=== PATIENT | female | born 1985 | race Caucasian/White ===

== ENCOUNTER 2022-11-23 12:19 | Emergency (ER) | payer OTHER, SELFPAY ==
[2022-11-23 12:29] VITALS: BP 122/78; PULSE 99; RESP 16; TEMP 36.3; O2SAT 98
--- NOTE | 2022-11-23 12:55 | ED.GENADULT ---
HPI - General Adult General Chief complaint: Urogenital-Female Stated complaint: Vaginal Issure Source: patient Mode of arrival: ambulatory Limitations: no limitations History of Present Illness HPI narrative: Patient presents for evaluation of vaginal irritation for the last few weeks. She indicates she has a new sex partner was well in doubt. She states during recent sexual activity she believes she may have experienced some vaginal tearing. She feels excoriated in the region now. She reports burning sensation wound urine comes in contact with the affected area. She is not sure whether she has any other urinary symptoms per se. She reports itching but is not sure whether she has experienced any vaginal discharge. She has a NuvaRing which was inserted about two weeks ago. She reports vaginal spotting. Denies any history of STI. Her sex partner is asymptomatic. They do not use condoms. She does not use any medicated or chemical douche products but she has been washing inside of her vaginal vault with water. Related Data Home Medications Medication Instructions Recorded Confirmed buspirone 5 mg tablet 5 mg PO DAILY 11/23/22 11/23/22 Allergies Allergy/AdvReac Type Severity Reaction Status Date / Time diphenhydramine AdvReac CRAZY Verified 11/23/22 12:38 [From Benadryl] BE AdvReac CRAZY Uncoded 11/23/22 12:38 Review of Systems Review of Systems: CONSTITUTIONAL: Denies fever, chills, or sweats. EYES: Denies visual changes, redness, or discharge. ENT: Denies rhinorrhea, congestion, sore throat, or otalgia. CARDIOVASCULAR: Denies chest pain, palpitations, or edema. RESPIRATORY: Denies cough or dyspnea. GASTROINTESTINAL: Denies abdominal pain, nausea, vomiting, or diarrhea. GENITOURINARY: Reports vaginal irritation, itching, burning and spotting. SKIN: Denies rash or itching. MUSCULOSKELETAL: Denies back pain, joint pain, or myalgia. NEUROLOGIC: Denies headache, numbness, dizziness, or weakness. PSYCHIATRIC: Denies anxiety or depression. [facility] Past Medical History Medical History No pertinent past medical history Surgical History Surgical History History of cholecystectomy History of tubal ligation Family History Family History Mother Family history non-contributory Social History Social History Smoking status: Never smoker Substance use: never Gender identity (if verbalized by the patient): Female Sexual Orientation (if Verbalized by the Patient): Straight or Heterosexual Spiritual care concerns: No Exam Narrative: GENERAL: Well-appearing, well-nourished, and in no acute distress. HEAD: Normocephalic, atraumatic. EYES: PERRLA and EOMI. ENT: Nares clear, no rhinorrhea or epistaxis. Mucous membranes moist. Oropharynx without tonsillar hypertrophy exudate or other lesions. Bilateral TMs pearly philip nonbulging NECK: Supple. No adenopathy or masses. No carotid bruits or JVD CHEST: Clear to auscultation. No respiratory distress. No wheezes rales or rhonchi HEART: Regular rate and rhythm. No murmur heard. Normal peripheral pulses. ABDOMEN: Soft, nontender, nondistended, normal active bowel sounds. GENITALS: There is erythema noted to the inner labia with several areas of excoriation which are all 5mm or less. No tenderness on bimanual exam. There is thick yellow drainage in vaginal vault. EXTREMITIES: Normal range of motion. No edema. SKIN: Warm, dry, no rash. NEURO: No focal deficits. Alert and oriented x3. PSYCH: Normal mood and affect. Course Course Emergency Course: This is a 37-year-old female who presented for evaluation of vaginal irritation. On exam she has erythema with several areas of excoriation to vaginal mucosa. Differential inc
== END 2022-11-23 13:27 | disposition home or self-care (01) ==
PROVIDERS: Emergency Provider Nurse Practitioner; PCP Physician Assistant
DX: N76.0 Acute vaginitis (principal)
CPT/HCPCS: 81003; 87086; 87255; 87491; 87591; 87661; 99214; G0463

== ENCOUNTER 2024-08-08 15:04 | Emergency (ER) | payer OTHER, SELFPAY ==
[2024-08-08 15:11] VITALS: BP 113/60; PULSE 80; RESP 16; TEMP 37.1; O2SAT 98
--- NOTE | 2024-08-08 15:22 | ED.FEMALEGU ---
HPI - Female Genitourinary General Chief complaint: Urogenital-Female Stated complaint: Urinary Problem Time Seen by Provider: 08/08/24 15:22 Source: patient Mode of arrival: ambulatory Limitations: no limitations History of Present Illness HPI Narrative: 39 yo F presents with c/o urinary frequency, urgency, incontinence for 3 days. Concerned she has bladder infection. No back or ABD pain. Denies N/V, chills, fever. Denies . No concern for STI. Denies vaginal itching, discharge. All systems reviewed and negative except as noted above. Related Data Home Medications Medication Instructions Recorded Confirmed aspirin 81 mg tablet,delayed 81 mg PO DAILY 08/08/24 08/08/24 release Allergies Allergy/AdvReac Type Severity Reaction Status Date / Time diphenhydramine AdvReac CRAZY Verified 11/23/22 12:38 [From Pumal] BE AdvReac CRAZY Uncoded 11/23/22 12:38 Review of Systems Review of Systems: CONSTITUTIONAL: Denies fever, chills, or sweats. EYES: Denies visual changes, redness, or discharge. ENT: Denies rhinorrhea, congestion, sore throat, or otalgia. CARDIOVASCULAR: Denies chest pain, palpitations, or edema. RESPIRATORY: Denies cough or dyspnea. GASTROINTESTINAL: Denies abdominal pain, nausea, vomiting, or diarrhea. GENITOURINARY: Denies dysuria or hematuria. Reports urinary frequency, urgency, incontinence. SKIN: Denies rash or itching. MUSCULOSKELETAL: Denies back pain, joint pain, or myalgia. NEUROLOGIC: Denies headache, numbness, or weakness. PSYCHIATRIC: Denies anxiety or depression. All other systems reviewed are negative, except as documented in HPI. [facility] Past Medical History Medical History No pertinent past medical history Surgical History Surgical History History of cholecystectomy History of tubal ligation Family History Family History Mother Family history non-contributory Social History Social History Smoking status: Never smoker Substance use: never Gender identity (if verbalized by the patient): Female Sexual Orientation (if Verbalized by the Patient): Straight or Heterosexual Spiritual care concerns: No Comments At time of signature, agree with nursing past medical, surgical, social and family history. There is no relevant family history pertinent to the presenting complaint. Exam Narrative: GENERAL: This is a well-nourished, well-developed patient, in no apparent distress. HEAD: normocephalic, atraumatic. EYES: PERRL. Sclera clear/white. Vision is grossly intact. EARS: External ears normal NOSE: External nose normal NECK: Neck supple, non-tender without lymphadenopathy, masses or thyromegaly. CARDIOVASCULAR: Regular rate and rhythm without murmurs, gallops, or rubs. RESPIRATORY: Clear to auscultation. Breath sounds equal bilaterally. No wheezes, rales, or rhonchi. SKIN: warm, Dry, intact with no suspicious lesions or rash, good texture and turgor. NEURO: awake, alert, and oriented to person, place and time. There were no obvious focal neurologic abnormalities. EXTREMITIES: No joint tenderness, effusion, or edema noted. Course Course Level of Care: Express Care Visit Vital Signs Vital signs: Vital Signs Temperature 37.1 C 08/08/24 15:11 Pulse Rate 80 08/08/24 15:11 Respiratory Rate 16 08/08/24 15:11 Blood Pressure 113/60 08/08/24 15:11 Pulse Oximetry 98 08/08/24 15:11 Oxygen Delivery Room Air 08/08/24 15:11 Temperature 37.1 C 08/08/24 15:11 Pulse Rate 80 08/08/24 15:11 Respiratory Rate 16 08/08/24 15:11 Blood Pressure 113/60 08/08/24 15:11 Pulse Oximetry 98 08/08/24 15:11 Oxygen Delivery Room Air 08/08/24 15:11 Reviewed MDM - Female Gen
[2024-08-08 15:28] LABS: EDUAAPPEAR Clear; EDUABILI Negative (Negative); EDUABLOOD Negative (Negative); EDUACOLOR1 Yellow; EDUAGLUCOSE Negative (Negative); EDUAKETONE Negative (Negative); EDUALEUKO Negative (Negative); EDUANITRATE Negative (Negative); EDUAPROTEIN Negative (Negative); EDUAUROBILI 0.2
== END 2024-08-08 15:42 | disposition home or self-care (01) ==
PROVIDERS: Emergency Provider Nurse Practitioner Family; PCP Physician Assistant
DX: R35.0 Frequency of micturition (principal); Z79.82 Long term (current) use of aspirin
CPT/HCPCS: 81003; 87086; 99213; G0463